=== PATIENT | female | born 1940 | race Caucasian/White ===

== ENCOUNTER → 2016-06-15 | Outpatient (CLI) | payer MEDICARE, OTHER | END | disposition home or self-care (01) | DX: I83.92 Asymptomatic varicose veins of left lower extremity (principal); I87.2 Venous insufficiency (chronic) (peripheral); I87.8 Other specified disorders of veins ==

== ENCOUNTER 2016-06-28 06:33 | Day surgery (SDC) | payer MEDICARE, OTHER ==
[~2016-06-28] VITALS: Ht 172.7 cm; Wt 79.9 kg
== END 2016-06-28 11:10 | disposition home or self-care (01) ==
LOC: RAD.S 06:33 → EDSTATUS 08:00 → RAD.S 09:00
PROC: [UNRECOGNIZED PROCEDURE] (principal; 2016-06-28)
DX: I87.2 Venous insufficiency (chronic) (peripheral) (principal); Z79.899 Other long term (current) drug therapy

== ENCOUNTER → 2016-06-30 | Outpatient (CLI) | payer MEDICARE, OTHER ==
--- NOTE | 2016-07-15 16:15 | SS ---
ADMIT: 06/30/2016 RM/LOC: [facility] MR#: [id number] [place], [place] [id number] [address] [place] [address] Sleep Study SEX: F AGE: 75 : 1940 STUDY DATE: 06/30/2016 CLINICAL HISTORY: A 75-year-old female, body mass index of 27.3, 67 inches tall, 174 pounds, in the sleep lab for evaluation of obstructive sleep apnea. TECHNICAL DESCRIPTION: Diagnostic polysomnogram was performed on night of 06/30/2016, attended by a trained echocardiography radiology technologist. DIAGNOSTIC POLYSOMNOGRAM FINDINGS: SLEEP: Total time in bed is 499 minutes, total sleep time 316 minutes, sleep efficiency 63.3%. 52.2% of time was spent in stage II sleep, 6.7% of time was spent in stage REM. BREATHING: Mild obstructive sleep apnea with an apnea-hypopnea index of 5.3. During this study, there were 4 obstructive apneas, 2 central apneas, and 22 obstructive hypopneas noted. OXYGEN SATURATION: Mean sleeping oxygen saturation is 91%. Lowest oxygen saturation 87%. 29% of time was spent saturating 80% to 89%. CARDIAC: Average heart rate is 72 beats per minute. MOVEMENTS/POSITION: During the study, the patient slept in the supine lateral position with a periodic leg movement index of 46.9. IMPRESSION AND PLAN: Mild obstructive sleep apnea with an apnea-hypopnea index of 5.3. Severe periodic leg movements of sleep with a periodic leg movement index of 46.9. Recommendations include CPAP titration therapy. Recommend losing weight, avoiding sedatives or alcohol. Refrain from driving if excessively sleepy, recommend avoiding sleeping in supine position. Clinical correlation needed. CPAP titration is recommended. Rodolfo Neal MD/ gemma JOB #: [id number] CC: Loulou Garibay MD, Attending Physician Loulou Garibay MD, Family Physician Loulou Garibay MD
== END | disposition home or self-care (01) ==
LOC: RESC 20:00
DX: G47.33 Obstructive sleep apnea (adult) (pediatric) (principal)

== ENCOUNTER → 2016-07-01 | Outpatient (CLI) | payer MEDICARE, OTHER | END | disposition home or self-care (01) | LOC: RAD.S 06-28 10:25 | DX: Z48.812 Encounter for surgical aftercare following surgery on the circulatory system (principal); Z98.890 Other specified postprocedural states ==

== ENCOUNTER → 2016-07-29 | Outpatient (CLI) | payer MEDICARE, OTHER | END | disposition home or self-care (01) | LOC: RAD.S 07-28 10:00 | DX: I87.2 Venous insufficiency (chronic) (peripheral) (principal); I82.812 Embolism and thrombosis of superficial veins of left lower extremity ==

== ENCOUNTER → 2016-08-12 | Outpatient (CLI) | payer MEDICARE, OTHER | END | disposition home or self-care (01) | LOC: RAD.S 13:00 | DX: I87.2 Venous insufficiency (chronic) (peripheral) (principal) ==